=== PATIENT | male | born 1945 | race Caucasian/White ===

== ENCOUNTER → 2019-01-24 16:38 | Outpatient (CLI) | payer MEDICARE | END | disposition home or self-care (01) | LOC: D.LABREF 16:38 | PROVIDERS: ATTEND Orthopaedic Surgery | DX: M17.11 Unilateral primary osteoarthritis, right knee (principal); Z11.8 Encounter for screening for other infectious and parasitic diseases ==

== ENCOUNTER 2019-02-12 10:54 | Inpatient (IN) | payer MEDICARE ==
[~2019-02-12] VITALS: Ht 177.8 cm; Wt 95.3 kg
[2019-03-06] MEDS ORDERED: PRAVACHOL40 MG PO (13:04)
[2019-03-06] MEDS ORDERED: NORVASC10 MG PO (13:04)
[2019-03-06] MEDS ORDERED: BAYER CHEWABLE81 MG PO (13:04)
[2019-03-06] MEDS ORDERED: MAXZIDE 75/501 TAB PO (13:05)
[2019-03-06] MEDS ORDERED: ADVIL PM PO (13:07)
[2019-03-06] MEDS ORDERED: GLUCOSAMINE HC500 MG PO (13:08)
[2019-03-06] MEDS ORDERED: FIBER-TABS625 MG PO (13:08)
[2019-03-07 11:56] LABS: ANION GAP 12.8 mmol/L (8-16); CALCIUM 8.8 mg/dL (8.5-10.1); CARBON DIOXIDE 27.7 mmol/L (21.0-32.0); CREATININE - SERUM 1.6 mg/dL (0.6-1.3); POTASSIUM - SERUM 3.5 mmol/L (3.5-5.1)
[2019-03-07 12:18] LABS: HEMATOCRIT 39.4 % (42.0-54.0); HEMOGLOBIN 14.8 g/dL (13.5-17.5); LYMPHOCYTES 27.8 % (15-50); MCH 32.5 pg (26.0-34.0); MCHC 37.6 g/dL (31.0-37.0); MCV 86.6 fL (80.0-100.0); MEAN PLATELET VOLUME 10.7 fL (7.4-10.4); NEUTROPHILS 62.1 % (40-80); PLATELET COUNT 252 10x3/uL (130-400); RBC 4.55 10x6/uL (4.20-6.10); RDW 12.8 % (11.5-14.5); WBC 8.1 10x3/uL (4.8-10.8)
[2019-03-07 12:51] LABS: APPEARANCE CLEAR (CLEAR); BACTERIA FEW /hpf (NONE SEEN); BILIRUBIN NEGATIVE (NEGATIVE); COLOR YELLOW (YELLOW); EPITHELIAL CELLS OCC /hpf (0-5); GLUCOSE NEGATIVE (NEGATIVE); KETONE NEGATIVE (NEGATIVE); NITRITE NEGATIVE (NEGATIVE); PROTEIN NEGATIVE (NEGATIVE); SPECIFIC GRAVITY 1.015 (1.005-1.020); UROBILINOGEN NORMAL (NORMAL); WHITE CELLS - URINE RARE /hpf (0-5)
[2019-03-07 13:13] LABS: APTT 28.8 SECONDS (22.8-39.4); INR 1.01 (0.85-1.17); PROTIME 12.8 SECONDS (11.6-15.0)
[2019-03-12] VITALS (10 sets, daily range): BP systolic 90–134; BP diastolic 61–77; BMI 31.3; BMI 30.1
[2019-03-12] MEDS ORDERED: MACRODANTIN50 MG PO (06:14)
--- NOTE | 2019-03-12 08:15 | NUR ---
RIGHT LEG PREPPED FROM TOURNIQUET TO TOES CIRCUMFERENTIALLY PLASMA BLADE SET TO 6/8 BOVIE PAD RIGHT FLANK [id number] EXP 08/30/20
--- NOTE | 2019-03-12 10:14 | NUR ---
REC'D TO ROOM 2209 EASILY TO AROUSED WHEN NAME IS CALLED. RESP EVEN AND UNLABORED WITH NO DISTRESS NOTED. CAN EXPRESS NEEDS AND WANTS. DRESSING CLEAN DRY AND INTACT TO RIGHT KNEE WITH ICE PACK IN PLACE. DENIES ANY PAIN OR DISCOMFORT AT THIS TIME. VS TAKEN PER PROTOCOL. AND C/L IN REACH AT BEDSIDE.
--- NOTE | 2019-03-12 11:00 | NUR ---
RESTING QUIETLY IN BED. USED IS INSTRUCTED. DENIES NEEDS. AT BEDSIDE.
--- NOTE | 2019-03-12 12:30 | NUR ---
ATE ALL OF LUNCH. VSS. DENIES NEEDS.
--- NOTE | 2019-03-12 14:00 | NUR ---
VOIDED 100 CC WITHOUT DIFFICULTY. DENIES NEEDS. VSS.
[2019-03-13 04:00] VITALS: BP 90/59
--- NOTE | 2019-03-13 04:14 | NUR ---
PT RESTING IN BED. EYES CLOSED. NO SIGNS OF DISTRESS. BREATHING EVEN AND UNLABORED. IV SITE LT FA DRESSING CLEAN DRY AND INTACT. NO SIGNS OF INFECTION. BOWEL SOUNDS ACTIVE. RT KNEE DRESSING CLEAN DRY AND INTACT. CPM AT THIS TIME. PT TOLERATING WELL. WILL CONTINUE PLAN OF CARE. CALL LIGHT IN REACH. BED LOWERED AND LOCKED. BED RAILS UP X2.
[2019-03-13 05:57] LABS: HEMATOCRIT 33.1 % (42.0-54.0); HEMOGLOBIN 11.7 g/dL (13.5-17.5); MCH 31.5 pg (26.0-34.0); MCHC 35.3 g/dL (31.0-37.0); MEAN PLATELET VOLUME 10.7 fL (7.4-10.4); RBC 3.72 10x6/uL (4.20-6.10); RDW 13.1 % (11.5-14.5); WBC 12.2 10x3/uL (4.8-10.8)
--- NOTE | 2019-03-13 07:16 | OP ---
PATIENT NAME: BLESSING GERONIMO MEDICAL RECORD: [id number] :43 LOCATION:[id number] ADMISSION DATE:03/12/19 SURGEON: MAKENNA VASQUEZ MD DATE OF OPERATION: 03/12/2019 PREOPERATIVE DIAGNOSIS: Degenerative arthritis of the right knee. POSTOPERATIVE DIAGNOSIS: Degenerative arthritis of the right knee. PROCEDURE: Right total knee arthroplasty. SURGEON: Makenna Vasquez MD EQUALIZING SAW OPERATOR SURGEON: Trenton Recio APN ANESTHESIA: General. INTRAOPERATIVE COMPLICATIONS: None. SUMMARY OF PATHOLOGIC FINDINGS: Severe degenerative arthritis of the right knee. They require total knee arthroplasty of all components. IMPLANTS USED: [place] triathlon total knee arthroplasty, press fit including the femoral component, tibial component as well as patellar component, femoral component size 6, tibial component size 6. The tibial bearing insert size 13 x 3, patella size 33 x 9 press fit. OPERATIVE SUMMARY IN DETAIL: After obtaining the appropriate preoperative orthopedic surgery consent as well as anesthetic consultation, evaluation and clearance, the patient was brought to the operating room and placed on the operating table in supine position. After general laryngeal mask airway was administered, tourniquet was placed on the proximal aspect of the right lower extremity. Right lower extremity was then prepped and draped in routine sterile fashion. The leg was elevated and exsanguinated, tourniquet inflated to 250 mmHg. Appropriate timeout was taken and agreed upon by all using the appropriate patient identifiers. Routine midline incision was taken down for paramedian arthrotomy. Paramedian arthrotomy was performed. Patella was everted, distal femur was exposed. Soft tissue excision was done in the usual fashion. An intramedullary guide hole was created for intramedullary guided distal femoral cut followed by complete exposure of the proximal tibia. With further excision of the meniscus and soft tissues, intramedullary guide hole was created at the proximal tibia. Proximal tibia was cut. Appropriate measurements were taken. Chamfer cuts were made. Having completed this, trials were put into the corresponding, above-mentioned implants was taken through range of motion. At this point trials were removed. Patella was arthritic. Articular aspect of the patella was excised in preparation for 33 x 9 press fit patella. At this point, all intra-articular debris was irrigated in pulsatile lavage fashion. Bone ends were dried. Final components were put into place with excellent fit. This was taken through range of motion and found to be stable in all planes. Having completed this, the knee was instilled with a gram of tobramycin. Paramedian arthrotomy was closed with #2 Ethibond by Trenton Recio followed by #1 Vicryl and skin reza. Also by Trenton Recio sterile dressings were applied. Tourniquet was deflated. The patient was awakened, taken to recovery room in stable condition. All final needle and sponge counts were correct. OPERATIVE REPORT [id number] BLESSING GERONIMO TRANSINT:[id number] Voice Confirmation ID: [id number] DOCUMENT ID: [id number] PEDRO WALLER, MAKENNA CHATMAN at 0716 CC: [id number] DICTATION DATE: 03/13/19613 NOVELTY DIPPER: 03/13/19 0659 ADM IN [facility] [address] [place] [address]
--- NOTE | 2019-03-13 07:20 | NUR ---
PT RESTING IN BED WITH CPM TO RIGHT LEG IN PLACE. SPOUSE AT BEDSIDE. PT RATES PAIN 8/10 AT THIS TIME. PAIN MEDICATION ADMINISTERED PER MD ORDERS. IV TO LEFT FOREARM WITH 1/2 NS @ 100ML/HR INFUSING VIA PUMP. SITE WITHOUT REDNESS OR EDEMA. DRESSING C/D/I TO RIGHT LOWER EXTREMITY. EXTREMITY WARM TO TOUCH, ABLE TO MOVE TOES. DENIES FURTHER NEEDS AT THIS TIME. CL WITHIN REACH. ENCOURAGED TO CALL WITH NEEDS. CONTINUE POC
[2019-03-13 08:36] VITALS: BP 159/63; BP 94/56
--- NOTE | 2019-03-13 09:15 | NUR ---
PT OOB AND AMBULATING WITH PT AROUND NURSES DESK. PT SD WELL
--- NOTE | 2019-03-13 11:47 | NUR ---
PT RESTING IN BED WITH C/O PAIN TO RIGHT LOWER EXTREMITY 11/22. TORADOL ADMINISTERED PER MD ORDERS AT THIS TIME. CL WITHIN REACH. DENIES FURTHER NEEDS AT THIS TIME. ENCOURAGED TO CALL WITH NEEDS. CONTINUE TO MONITOR
--- NOTE | 2019-03-13 13:42 | NUR ---
PT RESTING IN BED WITH FAMILY AT BEDSIDE. NO ACUTE DISTRESS NOTED AT THIS TIME. DENIES NEEDS AT THIS TIME. CL WITHIN REACH. ENCOURAGED TO CALL WITH NEEDS.
[2019-03-13 13:50] VITALS: Ht 177.8 cm; Wt 95.3 kg
[2019-03-13 17:36] VITALS: BP 100/62
--- NOTE | 2019-03-13 18:00 | NUR ---
CPM PLACED TO RIGHT LOWER EXTREMITY. PT VOICES COMFORT TO CPM. INSTRUCTED PT OF TIME TO REMOVE CPM. PT DENIES QUESTIONS OR CONCERNS AT THIS TIME. CL WITHIN REACH. ENCOURAGED TO CALL WITH NEEDS.
--- NOTE | 2019-03-13 19:31 | NUR ---
IN BED WITH CPM ON, PLEASANT MOOD, DENIES PAIN AT THIS TIME, DID INSTRUCT TO NOTIFY IF NEEDS CHANGE, VERBALIZED UNDERSTANDING. IV SALINE LOC TO LEFT FA, WILL NOTE ANY CHANGE.
[2019-03-13 20:00] VITALS: BP 101/53
--- NOTE | 2019-03-13 20:20 | NUR ---
REQUESTED PAIN MEDICATION FOR PAIN 5/10, GIVEN PER ORDERS. WILL NOTE ANY CHANGE.
[2019-03-14] VITALS: BP 97/67
--- NOTE | 2019-03-14 01:47 | NUR ---
FEVER OF 101.5 REPORTED, ORDER RCVD TO GIVE TYLENOL 650MG PO FOR FEVER. PT STATES HE IS UNABLE TO REST COMFORTABLY, DENIES OFFER OF PAIN MEDS, WILL NOTE ANY CHANGE.
--- NOTE | 2019-03-14 02:48 | NUR ---
I have reviewed this patient and I concur with the Shift Assessment completed by the Licensed Practical Nurse today this shift.
[2019-03-14 04:00] VITALS: BP 107/69
[2019-03-14 05:15] LABS: HEMATOCRIT 30.4 % (42.0-54.0); HEMOGLOBIN 10.9 g/dL (13.5-17.5); MCHC 35.9 g/dL (31.0-37.0); MCV 89.1 fL (80.0-100.0); MEAN PLATELET VOLUME 10.7 fL (7.4-10.4); RBC 3.41 10x6/uL (4.20-6.10); RDW 13.1 % (11.5-14.5); WBC 10.2 10x3/uL (4.8-10.8)
--- NOTE | 2019-03-14 05:22 | NUR ---
DID NOT REST WELL THIS SHIFT, DID REQUEST PAIN MEDICINE PRIOR TO CPM MACHINE, GIVEN PER ORDERS. WILL NOTE ANY CHANGE.
--- NOTE | 2019-03-14 07:30 | NUR ---
PT RESTING IN BED ON CPM. AT BEDSIDE. DENIES PAIN. NO S/S OF ACUTE DISTRESS. CL IN PLACE.
[2019-03-14 08:55] VITALS: BP 115/69
[2019-03-14 12:01] LABS: APPEARANCE CLEAR (CLEAR); BILIRUBIN NEGATIVE (NEGATIVE); COLOR YELLOW (YELLOW); GLUCOSE NEGATIVE (NEGATIVE); KETONE NEGATIVE (NEGATIVE); NITRITE NEGATIVE (NEGATIVE); PROTEIN NEGATIVE (NEGATIVE); SPECIFIC GRAVITY 1.015 (1.005-1.020); UROBILINOGEN NORMAL (NORMAL)
[2019-03-14 13:57] VITALS: BP 100/63
--- NOTE | 2019-03-14 15:25 | MORECARE ---
CASE MANAGEMENT DISCHARGE SUMMARY PATIENT: BLESSING GERONIMO UNIT: [id number] ADM DATE: 03/12/19 AGE: 73 : 44 SEX: M ROOM/BED: D.2209 AUTHOR: EREN RAY PHYSICIAN: REFERRING PHYSICIAN: MAKENNA VASQUEZ MD DATE OF SERVICE: 03/14/19 Discharge Plan Patient Name: BLESSING GERONIMO Facility: [facility]:[place] : 1945 Planned Disposition: Home or Self Care Anticipated Discharge Date: Discharge Date: Expected LOS: Initial Reviewer: [email or web address] Initial Review Date: 03/12/2019 Generated: 03/14/19 4:25 pm DCPIA - Discharge Planning Initial Assessment Updated by [email or web address]: Disha Carranza on 03/14/19 3:24 pm * Is the patient Alert and Oriented? Yes * How many steps to enter\exit or inside your home? * PCP JUAN CARLOS * Pharmacy [facility] * Preadmission Environment Home with Family * ADLs Independent * Equipment Bedside Commode Elevated Toliet Seat Rolling Walker Shower Chair * List name and contact numbers for known caregivers / representatives who currently or will assist patient after discharge: FOREIGN (SPOUSE) [phone] * Verbal permission to speak to the caregivers and representatives has been obtained from the patient. Yes * Community resources currently utilized None * Additional services required to return to the preadmission environment? Yes * Can the patient safely return to the preadmission environment? Yes * Has this patient been hospitalized within the prior 30 days at any hospital? No External [facility]iders [facility] Next Contact Date: Service Request Date: Service Type: Resolution: Reviewer: Comments: Patient Name: BLESSING GERONIMO Page [id number] at 1525 All edits/amendments must be made on the electronic document DICTATION DATE: 03/14/191524 BOOTH OPERATOR: EARLINE 03/14/19 1525 RPT#: [id number] DC DATE: STATUS: ADM IN [facility] [address] [place] [address] END OF REPORT
--- NOTE | 2019-03-14 15:35 | MORECARE ---
CASE MANAGEMENT DISCHARGE SUMMARY PATIENT: BLESSING GERONIMO UNIT: [id number] ADM DATE: 03/12/19 AGE: 73 : 43 SEX: M ROOM/BED: D.2209 AUTHOR: EREN RAY PHYSICIAN: REFERRING PHYSICIAN: MAKENNA VASQUEZ MD DATE OF SERVICE: 03/14/19 Discharge Plan Patient Name: BLESSING GERONIMO Facility: [facility]:[place] : 1945 Planned Disposition: Home or Self Care Anticipated Discharge Date: Discharge Date: Expected LOS: Initial Reviewer: [email or web address] Initial Review Date: 03/12/2019 Generated: 03/14/19 4:34 pm Comments DCP- Discharge Planning Updated by [email or web address]: Disha Carranza on 03/14/19 2:[address] IMM served and explained DCP- Discharge Planning Updated by [email or web address]: Disha Carranza on 03/14/19 2:[address] Patient Name: BLESSING GERONIMO Admission Status: Elective Accout number: [id number] Admission Date: 03-12-2019 : 1945 Admission Diagnosis: Attending: MAKENNA VASQUEZ Current LOS: 2 Anticipated DC Date: Planned Disposition: Home or Self Care Primary Insurance: [facility] MEDICARE SOLUTIONS Discharge Planning Comments: CM met with patient & spouse to complete initial dc planning assessment. CM educated patient on the CM role and verbal consent given by patient to complete assessment. Patient lives at home with his where he is independent with his care. At discharge patient plans to return home and feels this is a safe discharge. CM discussed availability of home health, rehab services, and medical equipment. Patient [facility] at 9:30am. He has a walker, BSC, shower chair and elevated toilet seat. He does not have a CPM and is not sure he will need one. Patient denied known discharge needs at this time. CM will continue to follow and will assist as needed with dc plans/needs. Immigration Patrol Inspector: Disha Carranza DCPIA - Discharge Planning Initial Assessment Updated by [email or web address]: Disha Carranza on 03/14/19 3:24 pm * Is the patient Alert and Oriented? Yes * How many steps to enter\exit or inside your home? * PCP JUAN CARLOS * Pharmacy [facility] * Preadmission Environment Home with Family * ADLs Independent * Equipment Bedside Commode Elevated Toliet Seat Rolling Walker Shower Chair * List name and contact numbers for known caregivers / representatives who currently or will assist patient after discharge: FOREIGN (SPOUSE) [phone] * Verbal permission to speak to the caregivers and representatives has been obtained from the patient. Yes * Community resources currently utilized None * Additional services required to return to the preadmission environment? Yes * Can the patient safely return to the preadmission environment? Yes * Has this patient been hospitalized within the prior 30 days at any hospital? No Coverage Notice Reviewer: [email or web address] Ruben Carranza Notice Issued Date-Time: 03/14/2019 14:45 Notice Type: IM Discharge Notice Notice Delivered To: Patient Relationship to Patient: Die Polisher Name: Delivery Method: HAND - Hand Delivered Marisol Days: Prior Verbal Notification: Recipient Understood Notice: Yes Recipient Signature: Yes Med Rec Note Co-signed by Attending: Coverage Notice Comment: Last DP export: 03/14/19 2:25 p Patient Name: BLESSING GERONIMO Page 48495 at 1535 All edits/amendments must be made on the electronic document DICTATION DATE: 03/14/191533 ASPHALT DAUBER: EARLINE 03/14/191533 RPT#: [id number] DC DATE: STATUS: ADM IN [facility] [address] [place] [address] END OF REPORT
[2019-03-14 16:24] VITALS: BP 107/61
--- NOTE | 2019-03-14 18:30 | NUR ---
PT ON CPM. NORCO GIVEN PRIOR FOR PAIN. NO S/S OF ACUTE DISTRESS. AT BEDSIDE. CL IN PLACE.
--- NOTE | 2019-03-14 19:29 | NUR ---
IN BED ON CPM WITH TELEVISION ON, AT BEDSIDE. DENIES ANY PAIN OR NEEDS AT THIS TIME. WILL NOTE ANY CHANGE.
[2019-03-14 21:15] VITALS: BP 98/62
--- NOTE | 2019-03-15 05:02 | NUR ---
REQUESTED PAIN MED BEFORE CPM, GIVEN PER ORDERS. WILL NOTE ANY CHANGE.
[2019-03-15 05:11] VITALS: BP 111/66
[2019-03-15] MEDS ORDERED: ELIQUIS2.5 MG PO (08:19)
[2019-03-15] MEDS ORDERED: PERCOCET 10-321 EAC1 PO (08:20)
[2019-03-15 08:30] VITALS: BP 107/64
--- NOTE | 2019-03-15 09:53 | MORECARE ---
CASE MANAGEMENT DISCHARGE SUMMARY PATIENT: BLESSING GERONIMO UNIT: [id number] ADM DATE: 03/12/19 AGE: 73 : 44 SEX: M ROOM/BED: D.2209 AUTHOR: EREN RAY PHYSICIAN: REFERRING PHYSICIAN: MAKENNA VASQUEZ MD DATE OF SERVICE: 03/15/19 Discharge Plan Patient Name: BLESSING GERONIMO Facility: [facility]:[place] : 1945 Planned Disposition: Home or Self Care Anticipated Discharge Date: Discharge Date: Expected LOS: Initial Reviewer: [email or web address] Initial Review Date: 03/12/2019 Generated: 03/15/19 10:52 am Comments DCP- Discharge Planning Updated by [email or web address]: Disha Carranza on 03/15/19 8:[address] Patient will be discharging home today. DME/CPM was set up by Dr Vasquez's office for [employer]. I called Mau with that company to verify that they received the order and they will deliver the DME. He stated that they will deliver to hospital. CM to follow and assist as needed DCP- Discharge Planning Updated by [email or web address]: Disha Carranza on 03/14/19 2:[address] IMM served and explained DCP- Discharge Planning Updated by [email or web address]: Disha Carranza on 03/14/19 2:[address] Patient Name: BLESSING GERONIMO Admission Status: Elective Accout number: [id number] Admission Date: 03-12-2019 : 1945 Admission Diagnosis: Attending: MAKENNA VASQUEZ Current LOS: 2 Anticipated DC Date: Planned Disposition: Home or Self Care Primary Insurance: [facility] MEDICARE SOLUTIONS Discharge Planning Comments: CM met with patient & spouse to complete initial dc planning assessment. CM educated patient on the CM role and verbal consent given by patient to complete assessment. Patient lives at home with his where he is independent with his care. At discharge patient plans to return home and feels this is a safe discharge. CM discussed availability of home health, rehab services, and medical equipment. Patient wishes to [facility] at 9:30am. He has a walker, BSC, shower chair and elevated toilet seat. He does not have a CPM and is not sure he will need one. Patient denied known discharge needs at this time. CM will continue to follow and will assist as needed with dc plans/needs. Getterer: Disha Carranza DCPIA - Discharge Planning Initial Assessment Updated by [email or web address]: Disha Carranza on 03/14/19 3:24 pm * Is the patient Alert and Oriented? Yes * How many steps to enter\exit or inside your home? * PCP JUAN CARLOS * Pharmacy [facility] * Preadmission Environment Home with Family * ADLs Independent * Equipment Bedside Commode Elevated Toliet Seat Rolling Walker Shower Chair * List name and contact numbers for known caregivers / representatives who currently or will assist patient after discharge: FOREIGN (SPOUSE) [phone] * Verbal permission to speak to the caregivers and representatives has been obtained from the patient. Yes * Community resources currently utilized None * Additional services required to return to the preadmission environment? Yes * Can the patient safely return to the preadmission environment? Yes * Has this patient been hospitalized within the prior 30 days at any hospital? No Coverage Notice Reviewer: [email or web address] - Disha Carranza Notice Issued Date-Time: 03/14/2019 14:45 Notice Type: IM Discharge Notice Notice Delivered To: Patient Relationship to Patient: Cartography Professor Name: Delivery Method: HAND - Hand Delivered Marisol Days: Prior Verbal Notification: Recipient Understood Notice: Yes Recipient Signature: Yes Med Rec Note Co-signed by Attending: Coverage Notice Comment: Last DP export: 03/14/19 2:35 p Patient Name: BLESSING GERONIMO Page [phone] at 0953 All edits/amendments must be made on the electronic document DICTATION DATE: 03/15/19951 DIRECTOR OF CASINO MARKETING: EARLINE 03/15/19951 RPT#: [id number] DC DATE: STATUS: ADM IN [facility] [address] [place] [address] END OF REPORT
--- NOTE | 2019-03-15 11:20 | NUR ---
DISCHARGE INSTRUCTIONS GIVEN. PT VERBALIZED UNDERSTANDING. REMOVED IV CATH FROM LEFT HAND. PATIENT HAD QUESTIONS ON WHETHER OR NOT THEY NEEDED TO CONTINUE THE ANTIBIOTIC AND OINTMENT THAT THEY WERE GIVEN PRIOR TO SX. I TOLD THEM THAT SINCE THE INSTRUCTIONS STATED BEFORE SURGERY THEN THEY SHOULDN'T TAKE ANYMORE.
--- NOTE | 2019-03-19 11:37 | MORECARE ---
CASE MANAGEMENT DISCHARGE SUMMARY PATIENT: BLESSING GERONIMO UNIT: [id number] ADM DATE: 03/12/19 AGE: 73 : 44 SEX: M ROOM/BED: D.2207 AUTHOR: EREN RAY PHYSICIAN: REFERRING PHYSICIAN: MAKENNA VASQUEZ MD DATE OF SERVICE: 03/19/19 Discharge Plan Patient Name: BLESSING GERONIMO Facility: [facility]:[place] : 1945 Planned Disposition: Home or Self Care Anticipated Discharge Date: Discharge Date: 03/15/2019 Expected LOS: Initial Reviewer: [email or web address] Initial Review Date: 03/12/2019 Generated: 03/19/19 12:36 pm Comments DCP- Discharge Planning Updated by [email or web address]: Disha Carranza on 03/15/19 8:[address] Patient will be discharging home today. DME/CPM was set up by Dr Vasquez's office for [employer]. I called Mau with that company to verify that they received the order and they will deliver the DME. He stated that they will deliver to hospital. CM to follow and assist as needed DCP- Discharge Planning Updated by [email or web address]: Disha Carranza on 03/14/19 2:[address] IMM served and explained DCP- Discharge Planning Updated by [email or web address]: Disha Carranza on 03/14/19 2:[address] Patient Name: BLESSING GERONIMO Admission Status: Elective Accout number: [id number] Admission Date: 03-12-2019 : 1945 Admission Diagnosis: Attending: MAKENNA VASQUEZ Current LOS: 2 Anticipated DC Date: Planned Disposition: Home or Self Care Primary Insurance: [facility] MEDICARE SOLUTIONS Discharge Planning Comments: CM met with patient & spouse to complete initial dc planning assessment. CM educated patient on the CM role and verbal consent given by patient to complete assessment. Patient lives at home with his where he is independent with his care. At discharge patient plans to return home and feels this is a safe discharge. CM discussed availability of home health, rehab services, and medical equipment. Patient wishes to [facility] at 9:30am. He has a walker, BSC, shower chair and elevated toilet seat. He does not have a CPM and is not sure he will need one. Patient denied known discharge needs at this time. CM will continue to follow and will assist as needed with dc plans/needs. Urology Surgeon: Disha Carranza DCPIA - Discharge Planning Initial Assessment Updated by [email or web address]: Disha Carranza on 03/14/19 3:24 pm * Is the patient Alert and Oriented? Yes * How many steps to enter\exit or inside your home? * PCP JUAN CARLOS * Pharmacy [facility] * Preadmission Environment Home with Family * ADLs Independent * Equipment Bedside Commode Elevated Toliet Seat Rolling Walker Shower Chair * List name and contact numbers for known caregivers / representatives who currently or will assist patient after discharge: FOREIGN (SPOUSE) [phone] * Verbal permission to speak to the caregivers and representatives has been obtained from the patient. Yes * Community resources currently utilized None * Additional services required to return to the preadmission environment? Yes * Can the patient safely return to the preadmission environment? Yes * Has this patient been hospitalized within the prior 30 days at any hospital? No Coverage Notice Reviewer: [email or web address] - Disha Carranza Notice Issued Date-Time: 03/14/2019 14:45 Notice Type: IM Discharge Notice Notice Delivered To: Patient Relationship to Patient: Binding Stitcher Name: Delivery Method: HAND - Hand Delivered Marisol Days: Prior Verbal Notification: Recipient Understood Notice: Yes Recipient Signature: Yes Med Rec Note Co-signed by Attending: Coverage Notice Comment: Last DP export: 03/15/19 8:53 am Patient Name: BLESSING GERONIMO Page 84746 at 1137 All edits/amendments must be made on the electronic document DICTATION DATE: 03/19/19 1136 SWIMMING POOL MAINTENANCE SUPERVISOR: EARLINE 03/19/19 1136 RPT#: [id number] DC DATE:03/15/19 STATUS: DIS IN [facility] [address] [place] [address] END OF REPORT
== END 2019-03-15 11:45 | disposition home or self-care (01) | DRG 470 ==
LOC: D.SDCHOLD 03-07 10:00 → D.MS 03-12 05:25 → D.SDCHOLD 03-12 05:25 → D.MS 03-12 09:36 → D.SDCHOLD 03-12 10:00 → D.MS 03-15 11:45
PROVIDERS: ADMIT Orthopaedic Surgery; ATTEND Orthopaedic Surgery
PROC: 0SRC0JA Replacement of Right Knee Joint with Synthetic Substitute, Uncemented, Open Approach (ICD-10-PCS; principal; 2019-03-12 07:30)
DX: M17.11 Unilateral primary osteoarthritis, right knee (principal); I10 Essential (primary) hypertension; I25.10 Atherosclerotic heart disease of native coronary artery without angina pectoris; Z72.0 Tobacco use; R50.82 Postprocedural fever

== ENCOUNTER 2019-04-23 08:26 | Day surgery (SDC) | payer MEDICARE ==
[~2019-04-23] VITALS: Ht 177.8 cm; Wt 97.5 kg
[~2019-04-23 08:26] MED LIST: ADVIL PM PO; BAYER CHEWABLE81 MG PO; ELIQUIS2.5 MG PO; FIBER-TABS625 MG PO; GLUCOSAMINE HC500 MG PO; HYDROCODON-ACE1 EA10 PO; MACRODANTIN50 MG PO; MAXZIDE 75/501 TAB PO; NORVASC10 MG PO; PERCOCET 10-321 EAC1 PO; PRAVACHOL40 MG PO
[2019-04-23 09:02] LABS: HEMATOCRIT 38.3 % (42.0-54.0); HEMOGLOBIN 13.6 g/dL (13.5-17.5); MCH 31.1 pg (26.0-34.0); MCHC 35.5 g/dL (31.0-37.0); MCV 87.4 fL (80.0-100.0); MEAN PLATELET VOLUME 10.2 fL (7.4-10.4); RBC 4.38 10x6/uL (4.20-6.10); RDW 12.8 % (11.5-14.5)
[2019-04-23 09:20] LABS: ANION GAP 10.9 mmol/L (8-16); CALCIUM 9.8 mg/dL (8.5-10.1); CARBON DIOXIDE 30.9 mmol/L (21.0-32.0); POTASSIUM - SERUM 3.8 mmol/L (3.5-5.1)
[2019-04-23] MEDS ORDERED: ASPIRIN81 MG PO (10:11)
[2019-04-23] MEDS ORDERED: ADVIL PM PO (10:12)
[2019-04-23] MEDS ORDERED: CENTRUM MEN'S1 EACH PO (10:13)
[2019-04-23] MEDS ORDERED: ADVIL100 M1 PO (10:13)
[2019-04-23 10:18] VITALS: BP 132/87; Ht 177.8 cm; Wt 97.5 kg
[2019-04-23] MEDS ORDERED: HYDROCODON-ACE1 EA10 PO (11:57)
--- NOTE | 2019-05-03 09:16 | OP ---
PATIENT NAME: BLESSING GERONIMO MEDICAL RECORD: [id number] :[birth year] LOCATION:[facility] ADMISSION DATE: SURGEON: MAKENNA VASQUEZ MD DATE OF OPERATION: 04/23/2019 PREOPERATIVE DIAGNOSIS: Arthrofibrosis of the right knee (stiff right knee post total knee arthroplasty). POSTOPERATIVE DIAGNOSIS: Arthrofibrosis of the right knee (stiff right knee post total knee arthroplasty). PROCEDURE: Manipulation of right knee under anesthesia. SURGEON: Makenna Vasquez MD ANESTHESIA: TIVA. INTRAOPERATIVE COMPLICATIONS: None. SUMMARY OF PATHOLOGIC FINDINGS: The patient had excellent release in flexion as well as extension. OPERATIVE SUMMARY IN DETAIL: After obtaining appropriate preoperative orthopedic surgery consent as well as anesthetic consultation, evaluation and clearance, the patient was brought to the operating room and placed on the operating table in supine position. After adequate general TIVA anesthesia was administered, the patient's tibia was stabilized and with chest compression maneuver, the knee was bent to approximately 140 degrees with good release of manipulation. It was then taken out into full extension with approximately -2 degrees of extension achieved with manipulation. Having completed this, the patient was awakened and taken back to the outpatient in stable condition. TRANSINT:[id number] Voice Confirmation ID: [id number] DOCUMENT ID: [id number] MAKENNA VASQUEZ MD at 0916 CC: [id number] DICTATION DATE: 05/02/19 1119 HOT OILER: 05/02/19 1147 [facility] 04/23/19 [place] [id number]
== END 2019-04-23 13:35 | disposition home or self-care (01) ==
LOC: D.OPS 08:26 → D.PAN 10:55 → D.OPS 11:00 → D.PAN 11:15 → D.OPS 13:35 → D.PAN 14:40 → D.OPS 18:00
PROVIDERS: Anesthesiology; ATTEND Orthopaedic Surgery
DX: M24.661 Ankylosis, right knee (principal)

== ENCOUNTER → 2020-01-02 08:04 | Outpatient (CLI) | payer MEDICARE ==
[2019-04-23 10:18] VITALS: BMI 30.9
--- NOTE | ~2020-01-02 | EC ---
PATIENT:BLESSING GERONIMO DATE OF SERVICE: 01/02/20 SEX: M MEDICAL RECORD: [id number] DATE OF : 43 LOCATION:[facility] [place] AGE OF PATIENT: 74 ADMISSION DATE: 01/02/20 REFERRING PHYSICIAN: INTERPRETING PHYSICIAN: LELE VELASQUEZ MD ECHOCARDIOGRAM REPORT ECHO CHARGES 4 ECHO COMPLETE Date: 01/02/20 CLINICAL DIAGNOSIS: CAD ECHOCARDIOGRAPHIC MEASUREMENTS (adult normal given) AC root (d.<3.7cm) 4.3 cm LV Septum d (<1.2 cm> 1.3 cm Valve Excursion 2.1 cm LV Septum (systole) 1.8 cm Left Atria (s.<4.0cm> 3.3 cm LVPW d(<1.2cm) 1.4 cm RV (d.<2.3cm) 3.9 cm LVPW (sytole) 2.0 cm LV diastole(<5.6CM) 4.8 cm MV E-F(>70mm/sec) cm LV systole 2.8 cm LVOT Diameter 2.2 cm MV exc.(>10mm) 1.0 cm Est.ejection fraction (50-75%) % DOPPLER: LVIT cm/sec A 104.0cm/sec E 65.0 cm/sec LA cm/sec RVSP 31 mmHg LVOT 103 cm/sec AOP1/2T m/s Asc. Ao 135 cm/sec RVOT 68 cm/sec RA cm/sec PA cm/sec AV Gradient Peak 7.25 mmHg AV Mean 3.92 mmHg AV Area 3.4 cm MV Gradient Peak 4.88 mmHg MV Mean 2.04 mmHg MV Area cm COMMENTS: Rolled Glass Crosscutter: 2 JEANIE GALVEZ Resin Mixer: 3 Dr. Giordano TAPE# PACS Pericardial Effusion N DATE OF SERVICE: Adequate 2D, color flow imaging, spectral Doppler, and M-Mode Mild LVH. LV internal dimension is normal. Wall motion is normal. EF is greater than or equal to 55%. Aortic valve is tricuspid. No evidence of stenosis by Doppler interrogation. Left atrium normal at 3.3 cm. Mitral valve shows no prolapse. Trace MR. Right-sided chambers are grossly normal. Trace TR. Mild AI by color flow imaging. ECHOCARDIOGRAM REPORT [id number] BLESSING GERONIMO TRANSINT:[id number] Voice Confirmation ID: [id number] DOCUMENT ID: [id number] LELE VELASQUEZ MD CC: [id number] DICTATION DATE: 01/03/20899 ADVANCED MANUFACTURING TECHNICIAN: 01/03/20 1036 DEP CLI 01/02/20 [place] [id number] [place] [id number]
[~2020-01-02 08:04] MED LIST changes: +ADVIL100 M1 PO; +ASPIRIN81 MG PO; +CENTRUM MEN'S1 EACH PO
== END | disposition home or self-care (01) ==
LOC: D.HCCECHO 08:04
PROVIDERS: ATTEND Internal Medicine Interventional Cardiology
DX: I25.10 Atherosclerotic heart disease of native coronary artery without angina pectoris (principal)

== ENCOUNTER → 2021-01-07 09:26 | Outpatient (CLI) | payer MEDICARE ==
[2019-04-23 10:18] VITALS: BMI 30.9
--- NOTE | 2021-01-08 08:19 | EC ---
PATIENT:BLESSING GERONIMO DATE OF SERVICE: 01/07/21 SEX: M MEDICAL RECORD: [id number] DATE OF : 43 [facility]GE [facility] PAT[facility]: 75 ADMISSION DATE: 01/07/21 REFERRING PHYSICIAN: INTERPRETING PHYSICIAN: LELE VELASQUEZ MD ECHOCARDIOGRAM REPORT ECHO CHARGES 4 ECHO COMPLETE Date: 01/07/21 CLINICAL DIAGNOSIS: CAD/ ASSESS EF AND VALVES ECHOCARDIOGRAPHIC MEASUREMENTS (adult normal given) AC root (d.<3.7cm) 4.6 cm LV Septum d (<1.2 cm> 1.3 cm Valve Excursion 1.9 cm LV Septum (systole) 1.6 cm Left Atria (s.<4.0cm> 3.8 cm LVPW d(<1.2cm) 1.6 cm RV (d.<2.3cm) 3.5 cm LVPW (sytole) 1.9 cm LV diastole(<5.6CM) 4.7 cm MV E-F(>70mm/sec) cm LV systole 3.3 cm LVOT Diameter 1.9 cm MV exc.(>10mm) 0.8 cm Est.ejection fraction (50-75%) % DOPPLER: LVIT cm/sec A 93.0 cm/sec E 73.0 cm/sec LA cm/sec RVSP 23 mmHg LVOT 121 cm/sec AOP1/2T 580 m/s Asc. Ao 121 cm/sec RVOT 69 cm/sec RA cm/sec PA 110 cm/sec AV Gradient Peak 5.82 mmHg AV Mean 3.17 mmHg AV Area 2.7 cm MV Gradient Peak 4.92 mmHg MV Mean 1.72 mmHg MV Area cm COMMENTS: C Iron Worker: 2 JEANIE GALVEZ Training Director: 3 Dr. Giordano TAPE# PACS Pericardial Effusion N DATE OF SERVICE: Adequate 2D, color flow imaging, spectral Doppler, and M-Mode. Mild LVH. LV internal dimensions are normal. Wall motion normal. EF greater than or equal to 55%. Aortic valve questionably bicuspid, but with no stenosis by Doppler interrogation. Mild AI by color flow imaging. Left atrium appears normal at 3.8 cm. Mitral valve shows no prolapse. Trace MR. Right-sided chambers are grossly normal. Mild TR. ECHOCARDIOGRAM REPORT [id number] BLESSING GERONIMO TRANSINT:[id number] Voice Confirmation ID: [id number] DOCUMENT ID: [id number] LELE VELASQUEZ MD at 0819 CC: [id number] DICTATION DATE: 01/07/211626 LIFT TRUCK MECHANIC: 01/08/21 0004 DEP CLI 01/07/21 [place] [id number] [place] [id number]
== END | disposition home or self-care (01) ==
LOC: D.HCCECHO 09:26
PROVIDERS: ATTEND Internal Medicine Interventional Cardiology
DX: I25.10 Atherosclerotic heart disease of native coronary artery without angina pectoris (principal)

== ENCOUNTER → 2021-01-29 09:42 | Outpatient (CLI) | payer MEDICARE ==
[2019-04-23 10:18] VITALS: BMI 30.9
== END | disposition home or self-care (01) ==
LOC: D.US 09:42
PROVIDERS: ATTEND Internal Medicine Interventional Cardiology
DX: I25.10 Atherosclerotic heart disease of native coronary artery without angina pectoris (principal); I65.29 Occlusion and stenosis of unspecified carotid artery

== ENCOUNTER → 2021-02-11 07:44 | Outpatient (CLI) | payer MEDICARE ==
[2019-04-23 10:18] VITALS: BMI 30.9
--- NOTE | 2021-02-12 08:29 | ST ---
PATIENT:BLESSING GERONIMO MEDICAL RECORD: [id number] SEX: M LOCATION:[facility] ORDER #: ADMISSION DATE: 02/11/21 AGE OF PATIENT: 75 REFERRING PHYSICIAN: INTERPRETING PHYSICIAN: LELE VELASQUEZ MD DATE OF SERVICE: 02/11/2021 NUCLEAR STRESS TEST FINDINGS: Gated is normal, normal wall motion, normal wall thickening, EF 62%. SPECT imaging in the short axis view shows extensive inferior defect with reversibility along the inferior base. This was confirmed in the horizontal axis with a fixed inferior defect with some reversibility along the inferior base. Vertical axis: Vertical axis shows good uptake along the lateral wall and septum. FINAL IMPRESSION: 1. Normal gated, normal wall motion, normal EF 62%. 2. Abnormal SPECT imaging with a fixed and reversible defect along the inferior wall. The defect size is large, the defect severity is moderate. FINAL RECOMMENDATION: This gentleman with a known history of coronary artery disease and rapidly progressing symptoms, we will consider diagnostic angiography if clinically indicated. TRANSINT:[id number] Voice Confirmation ID: [id number] DOCUMENT ID: [id number] LELE VELASQUEZ MD at 0829 CC: [id number] DICTATION DATE: 02/11/21 1617 GLORY HOLE TENDER: 02/12/21 0117 DEP CLI 02/11/21 [place] [id number] [place] [address]
== END | disposition home or self-care (01) ==
LOC: D.HCCARDIO 07:44
PROVIDERS: ATTEND Internal Medicine Interventional Cardiology
DX: I20.9 Angina pectoris, unspecified (principal)